=== PATIENT | male | born 1990 | race Hispanic/Latino ===

== ENCOUNTER 2021-07-03 10:55 | Emergency (ER) | payer SELFPAY ==
[2021-07-03 11:13] VITALS: BP 114/93; PULSE 98; RESP 16; TEMP 36.7; O2SAT 99
--- NOTE | 2021-07-03 12:13 | ED.ALLEREA ---
HPI - Allergic Reaction General Chief complaint: Allergic Reaction Stated complaint: swollen lips Source: patient and RN notes reviewed Limitations: no limitations History of Present Illness HPI narrative: The patient, previously healthy [place] speaker, presents with skin eruption. Patient states he has a shorter 1 day history upon awakening of bilateral arm eruption, associated with definite lip edema. Symptoms began with burning/itching, are mild; no medication use, prior episodes, cough, wheeze, shortness of breath. And, the tongue may be slightly swollen,; the arm eruption has started to improve spontaneously. Patient advised to take medications, and begin eliminating foods from diet. Related Data Allergies Allergy/AdvReac Type Severity Reaction Status Date / Time No Known Allergies Allergy Verified 07/03/21 12:00 Review of Systems Review of Systems: General/Constitutional: No weight loss,fever Eyes: N0: Redness,discharge Ears/Nose/Throat: No: Epistaxis,ear discharge Respiratory: Denies: Hemoptysis Gastrointestinal: No Vomiting, Bleeding-rectal Skin: No Lumps, REPORTS eruption PMFSH Comments At time of signature, agree with nursing past medical, surgical, history. There is no relevant family history pertinent to the presenting complaint Exam Narrative: General Appearance: Well appearing, Conjunctiva clear Ears: External ear normal Nose: Normal nose Mouth/Throat: Normal appearing, diffusely swollen upper << lower lips ,Supple Respiratory: Airway patent, No respiratory distress Musculoskeletal: Full ROM,Warm, Dry; resolving urticaria eruption of the bilateral arms Neurological: A&O x3, Normal affect Course Vital Signs Vital signs: Vital Signs Temperature 98.0 F 07/03/21 11:13 Pulse Rate 98 07/03/21 11:13 Respiratory Rate 16 07/03/21 11:13 Blood Pressure 114/93 H 07/03/21 11:13 Pulse Oximetry 99 07/03/21 11:13 Temperature 98.0 F 07/03/21 11:13 Pulse Rate 98 07/03/21 11:13 Respiratory Rate 16 07/03/21 11:13 Blood Pressure 114/93 H 07/03/21 11:13 Pulse Oximetry 99 07/03/21 11:13 Discharge Plan Discharge Clinical Impression: Angioedema Qualifiers: Encounter type: initial encounter Qualified Code(s): T78.3XXA - Angioneurotic edema, initial encounter Patient Disposition: Home, Self-Care Condition: Stable Instructions: Urticaria (ED), Angioedema (ED) Prescriptions: New prednisone 20 mg tablet 60 mg PO DAILY Qty: 15 RF: 0 loratadine [Claritin] 10 mg tablet 10 mg PO DAILY PRN (Reason: allergy symptoms) Qty: 20 RF: 0 Follow-up/Referrals: UNKNOWN,DOCTOR [Primary Care Provider] - Stand Alone Forms: Work/School Release IP
== END 2021-07-03 12:25 | disposition home or self-care (01) ==
PROVIDERS: Emergency Provider Emergency Medicine
DX: T78.3XXA Angioneurotic edema, initial encounter (principal)
CPT/HCPCS: 99203; G0463